=== PATIENT | male | born 1990 | race Caucasian/White ===

== ENCOUNTER 2017-01-24 15:19 | Outpatient (CLI) | END 2017-01-24 15:20 | LOC: AMBL 15:19 | PROVIDERS: ATTEND Internal Medicine | DX: R55 Syncope and collapse (principal); X30.XXXA Exposure to excessive natural heat, initial encounter ==

== ENCOUNTER 2017-02-19 14:04 | Emergency (ER) ==
[2017-02-19 14:07] VITALS: BP 157/84; TEMP 97.7; BMI 27.8
[2017-02-19 14:46] LABS: BASOPHILS % (AUTO) 0.4 % (0.0-3.0); EOSINOPHILS # (AUTO) 0.1 K/ul (0.0-0.7); EOSINOPHILS % (AUTO) 0.8 % (0.0-7.0); HEMATOCRIT 44.5 % (42.0-52.0); HEMOGLOBIN 15.7 g/dl (14.0-18.0); IMMATURE GRANULOCYTE % (AUTO) 0.3 % (0.0-5.0); LYMPHOCYTES # (AUTO) 1.3 K/uL (0.60-3.4); LYMPHOCYTES % (AUTO) 17.1 (10.0-50.0); MEAN CORPUSCULAR HEMOGLOBIN 29.3 pg (27.0-31.0); MEAN CORPUSCULAR HGB CONC 35.3 (31.8-35.4); MEAN CORPUSCULAR VOLUME 83.2 fl (80.0-94.0); MONOCYTES # (AUTO) 0.4 K/uL (0.4-2.0); MONOCYTES % (AUTO) 5.7 (0-10); NEUTROPHILS # (AUTO) 5.6 K/ul (2.0-6.9); NEUTROPHILS % (AUTO) 75.7; PLATELET COUNT 213 10^3/uL (140-440); RED BLOOD COUNT 5.35 10^6/ul (4.70-6.10); WHITE BLOOD COUNT 7.33 K/ul (4.2-10.2)
[2017-02-19 15:03] LABS: COCAIN SCREEN,URINE NEGATIVE (NEGATIVE)
[2017-02-19 15:09] LABS: ALANINE AMINOTRANSFERASE 14 U/L (12-78); ALBUMIN 4.3 g/dL (3.4-5.0); ALBUMIN/GLOBULIN RATIO 1.26; ALKALINE PHOSPHATASE 62 U/L (50-136); ANION GAP 12.9; ASPARTATE AMINO TRANSFERASE 15 U/L (15-37); BILIRUBIN,TOTAL 0.55 mg/dL (0.00-1.20); BLOOD UREA NITROGEN 15 mg/dL (7-18); BUN/CREATININE RATIO 15.62; CALCIUM 9.9 mg/dL (8.2-10.2); CARBON DIOXIDE 29 mmol/L (21-32); CHLORIDE 105 mmol/L (98-107); CREATINE KINASE 89 U/L; CREATININE 0.96 mg/dL (0.60-1.10); GLUCOSE 77 mg/dL (70-100); POTASSIUM 3.9 mmol/L (3.5-5.1); SODIUM 143 mmol/L (136-145); TOTAL PROTEIN 7.7 g/dL (6.4-8.2)
--- NOTE | 2017-02-19 15:19 | ED.PDOC ---
General ED Provider: Dr. ANGELES GRAYSON Chief Complaint: Psychiatric Complaint Stated Complaint: palpitation Time Seen by Physician: 14:10 (no chest pain believes he is anxious offered no cause for anxiety) Mode of Arrival: Walk-In Information Source: Patient Exam Limitations: No limitations Primary Care Provider: ALYCE NEGRO Nursing and Triage Documentation Reviewed and Agree: Yes Cardiovascular Complaint Exam - Palpitations Complaint/Exam Symptoms Are: Resolved Timing: Intermittent Initial Severity: Mild Current Severity: None Character: Reports: Skipped beats Aggravating: Reports: None Alleviating: Reports: None Associated Signs and Symptoms: Denies: Lightheadedness, Dizziness, Syncope, Chest pain, Shortness of breath, Diaphoresis, Nausea, Vomiting Related Surgical History: Reports: None Cardiac Risk Factors: Reports: Smoking Pulmonary Embolism Risk Factors: Reports: None Atrial Fibrillation Risk Factors: Reports: None Differential Diagnoses: Mitral Valve Prolapse, Hypokalemia Quality Indicators for AMI: EKG in 10min. Quality Indicators for Cardiac Chest Pain: EKG in 10min. Quality Indicator For Non-Traumatic Chest Pain/Syncope: EKG Performed Review of Systems - Review Of Systems Constitutional: Reports: No symptoms Eyes: Reports: No symptoms Ears, Nose, Mouth, Throat: Reports: No symptoms Respiratory: Reports: No symptoms Cardiac: Reports: Palpitations GI: Reports: No symptoms : Reports: No symptoms Musculoskeletal: Reports: No symptoms Skin: Reports: No symptoms Neurological: Reports: No symptoms Endocrine: Reports: No symptoms Hematologic/Lymphatic: Reports: No symptoms All Other Systems: Reviewed and Negative Past Medical History - Past Medical History Previously Healthy: Yes Endocrine: Reports: None Cardiovascular: Reports: None Respiratory: Reports: None Hematological: Reports: None Gastrointestinal: Reports: None Genitourinary: Reports: None Neuro/Psych: Reports: None Musculoskeletal: Reports: None Cancer: Reports: None - Surgical History General Surgical History: Reports: None - Family History Family History: Reports: None - Social History Smoking Status: Current every day smoker Hx Substance Use: No Alcohol Screening: Occasionally Physical Exam - Physical Exam Appearance: Well-appearing, No pain distress, Well-nourished Eyes: GEE, EOMI, Conjunctiva clear ENT: Ears normal, Nose normal, Oropharynx normal Respiratory: Airway patent, Breath sounds clear, Breath sounds equal, Respirations nonlabored Cardiovascular: RRR, Pulses normal, No rub, No murmur GI/: Soft, Nontender, No masses, Bowel sounds normal, No Organomegaly Musculoskeletal: Normal strength, ROM intact, No edema, No calf tenderness Skin: Warm, Dry, Normal color Neurological: Sensation intact, Motor intact, Reflexes intact, Cranial nerves intact, Alert, Oriented Psychiatric: Affect appropriate, Mood appropriate Interpretation - Monitoring Specialist Rate: Normal Rhythm: Sinus Ectopy: None - EKG Interpretation Rate: Normal Rhythm: Sinus Ectopy: None [place]: NL ST Segment: Normal Critical Care Note - Critical Care Note Total Time (mins): 0 Course - Course Hematology/Chemistry: 02/19/17 14:41 02/19/17 14:41 Orders, Labs, Meds: Lab Review 02/19/17 02/19/17 14:35 14:41 WBC 7.33 RBC 5.35 Hgb 15.7 Hct 44.5 MCV 83.2 MCH 29.3 MCHC 35.3 RDW Coeff of Malena 12.5 Plt Count 213 Immature Gran % (Auto) 0.3 Neut % (Auto) 75.7 Lymph % (Auto) 17.1 [place] % (Auto) 5.7 Eos % (Auto) 0.8 Baso % (Auto) 0.4 Immature Gran # (Auto) 0.0 Neut # 5.6 Lymph # 1.3 [place] # 0.4 Eos # 0.1 Baso # 0.0 Sodium 143 Potassium 3.9 Chloride 105 Carbon Dioxide 29 Anion Gap 12.9 BUN 15 Creatinine 0.96 Estimated GFR (MDRD) 95.00 BUN/Creatinine Ratio 15.62 Glucose 77 Calcium 9.9 Total Bilirubin 0.55 AST 15 ALT 14 Alkaline Phosphatase 62 Total Creatine Kinase 89 Troponin I < 0.0100 Total Protein 7.7 Albumin 4.3 Globulin 3.4 Albumin/Globulin Ratio 1.26 Urine Opiates Screen Negative Ur Oxycodone Screen Negative Urine Methadone Screen Negative Ur Propoxyphene Screen Negative Ur Barbiturates Screen Negative U Tricyclic Antidepress Negative Ur Phencyclidine Scrn Negative Ur Amphetamine Screen Negative U Methamphetamines Scrn Negative U Benzodiazepines Scrn Negative Urine Cocaine Screen Negative U Cannabinoids Screen Positive Orders Category Date Time Status EKG-(ED ONLY) Stat CARDIO 02/19/17 14:31 Completed CBC W/ AUTO DIFF Stat LAB 02/19/17 14:41 Completed COMPREHENSIVE METABOLIC PANEL Stat LAB 02/19/17 14:41 Completed CREATINE KINASE Stat LAB 02/19/17 14:41 Completed TROPONIN I Stat LAB 02/19/17 14:41 Completed URINE DRUG SCREEN (RAPID FOR ED) [DRUG SCREEN, URINE, LAB 02/19/17 14:35 Completed RAPID] Stat Vital Signs: Temp Pulse Resp BP Pulse Ox 02/19/17 14:05 97.7 F 79 20 157/84 H 96 JOE Risk Score JOE Risk Score: Risk Score Odds of by 30D 0 0.1 (0.1-0.2) 1 0.3 (0.2-0.3) 2 0.4 (0.3-0.5) 3 0.7 (0.6-0.9) 4 1.2 (1.0-1.5) 5 2.2 (1.9-2.6) 6 3.0 (2.5-3.6) 7 4.8 (3.8-6.1) Departure - Departure Time of Disposition: 15:19 Disposition: HOME SELF-CARE Discharge Problem: Palpitations Instructions: Palpitations (ED), How to Stop Smoking (ED) Condition: Good Pt referred to PMD for follow-up: Yes Additional Instructions: Please call your Family Physician as soon as possible to schedule a follow-up appointment. Allergies/Adverse Reactions: Allergies No Known Allergies Allergy (Unverified 02/19/17 14:07) Home Medications: Ambulatory Orders 1 [No Reported Medications] 02/19/17 Disposition Discussed With: Patient, Family
== END 2017-02-19 15:27 | disposition home or self-care (01) ==
LOC: ED 14:04
DX: R00.2 Palpitations (principal); F17.210 Nicotine dependence, cigarettes, uncomplicated
CPT/HCPCS: 36415; 80053; 80306; 82550; 84484; 85025; 93005; 93010; 99283